=== PATIENT | male | born 1945 | race Caucasian/White ===

== ENCOUNTER 2019-06-05 23:05 | Emergency (ER) | payer OTHER, BC ==
[2019-06-06 00:02] LABS: Absolute Lymphocytes (CBC) 1.1 K/uL (0.7-4.9); Basophils % 0.3 % (0-1.3); Hematocrit 40.3 % (39.6-49.0); Lymphocytes % 18.7 % (15.3-44.8); MPV 9.6 fL (7.6-11.3); Protime INR 1.18
[2019-06-06 00:17] LABS: ALT/SGPT 32 U/L (12-78); AST/SGOT 36 U/L (15-37); Alkaline Phosphatase 94 U/L (45-117); BUN Blood Urea Nitrogen 39 mg/dL (7-18); Bicarbonate 27 mmol/L (21-32); Bilirubin Direct 0.2 mg/dL (0-0.2); Bilirubin Total 0.7 mg/dL (0.2-1.0); Glucose Level 104 mg/dL (74-106); Magnesium 2.3 mg/dL (1.8-2.4); NT PRO-BNP 194 pg/mL (<125); Potassium 3.8 mmol/L (3.5-5.1); Sodium Level 142 mmol/L (136-145); Troponin (Emerg Dept Use Only) < 0.02 ng/mL (0.0-0.045)
--- NOTE | 2019-06-06 01:20 | ER ---
Nurse's Notes [facility] Name: Octavio Sparks Age: 73 yrs Sex: Male : 1945 Arrival Date: 06/05/2019 Time: 23:09 Bed 5 Private MD: Diagnosis: Superficial injury of head;Syncope and collapse Presentation: 06/05 23:09 Presenting complaint: EMS states: they were toned out for a fall injury pt does not bb know if he had LOC he got up to go to the bathroom and found himself on the floor he had double vision from his right eye for a little while but it is gone now. Transition of care: patient was not received from another setting of care. Onset of symptoms was June 05, 2019. Risk Assessment: Do you want to hurt yourself or someone else? Patient reports no desire to harm self or others. Initial Sepsis Screen: Does the patient meet any 2 criteria? No. Patient's initial sepsis screen is negative. Does the patient have a suspected source of infection? No. Patient's initial sepsis screen is negative. Care prior to arrival: None. 23:09 Method Of Arrival: EMS: [facility] bb 23:09 Acuity: CANDICE 2 bb 23:09 Mechanism of Injury: Fall from standing position. Trauma event details: Injury occurred bb in the [facility], Injury occurred: at home. Injury occurred: June 05, 2019. Trauma Activation: Alert Physician: ED Physician; Name: Bhavesh; Notified At: 23:02; Arrived At: 23:02 Physician: General Surgeon; Name: ; Notified At: 23:02; Arrived At: Physician: Radiology; Name: Emilie; Notified At: 23:02; Arrived At: 23:02 Physician: Respiratory; Name: ; Notified At: 23:02; Arrived At: Physician: Lab; Name: ; Notified At: 23:02; Arrived At: Historical: - Allergies: 23:16 Codeine; bb - Home Meds: 23:16 sotalol 80 mg Oral tab 1 tab 2 times per day [Active]; atorvastatin 80 mg oral tab 1 bb tab once daily [Active]; Eliquis 5 mg oral tab 1 tab 2 times per day [Active]; aspirin 81 mg Oral TbEC 1 tab once daily [Active]; losartan 50 mg oral tab 1 tab 2 times per day [Active]; Celebrex 200 mg Oral cap 1 cap once daily [Active]; - PMHx: 23:16 Atrial Fib; Hypertension; Hyperlipidemia; reflux; herniated disc; bb - PSHx: 23:16 Tonsillectomy; Knee surgery; CABG; Rizwan Fundiplication; bb - Immunization history:: Adult Immunizations up to date. - Social history:: Smoking status: unknown. - Immunization history: Last tetanus immunization: unknown. - Ebola Screening: : No symptoms or risks identified at this time. Screenin:17 Abuse screen: Denies threats or abuse. Nutritional screening: No deficits noted. bb Tuberculosis screening: No symptoms or risk factors identified. Fall Risk Total Emery Fall Scale indicates High Risk Score (45 or more points). Fall prevention measures have been instituted. Side Rails Up X 2 Family Present and informed to notify staff if the need to leave the bedside As available patient and family educated on Fall Prevention Program and Strategies. Primary Survey: 23:09 NO uncontrolled hemorrhage observed. A: The patient is alert. Airway: patent. bb Breathing/Chest: Respiratory pattern: regular, Respiratory effort: spontaneous, unlabored, Breath sounds: clear, bilaterally. Chest inspection: symmetrical rise and fall of the chest. Circulation: Heart tones present. Pulses: palpable right radial artery and left radial artery. Skin color: pink, Skin temperature: warm. Disability Alert. 23:09 Exposure/Environment: There is no evidence of uncontrolled external bleeding. bb 23:53 Reassessment Airway Airway Patent Breathing/Chest Respiratory pattern Regular bb Respiratory effort Spontaneous Unlabored Breath sounds Clear Chest inspection Symmetrical Circulation Heart tones Present Disability Alert. Secondary Survey: 23:09 HEENT: Face Other small laceration to right brow bleeding controlled. Gastrointestinal: bb No deficits noted. : No deficits noted. Musculoskeletal: Circulation, motion, and sensation intact. Assessment: 23:17 General: Appears in no apparent distress. slender, Behavior is calm, cooperative. Pain: bb Complains of pain in right shoulder. Neuro: Level of Consciousness is awake, alert, obeys commands, Oriented to person, place, time, situation. Cardiovascular: Heart tones S1 S2 present Capillary refill < 3 seconds Patient's skin is warm and dry. Pulses are all present. Edema is absent. Respiratory: Airway is patent Respiratory effort is even, unlabored, Respiratory pattern is regular, Breath sounds are clear bilaterally. GI: Abdomen is flat, Bowel sounds present X 4 quads. Abd is soft and non tender X 4 quads. Derm: Wound noted right brow. Musculoskeletal: Circulation, motion, and sensation intact. 23:22 Reassessment: pt to CT via stretcher with certified ophthalmic technologist. bb 23:52 Reassessment: Patient and/or family updated on plan of care and expected duration. Pain bb level reassessed. Patient is alert, oriented x 3, equal unlabored respirations, skin warm/dry/pink. awaiting diagnostic results, family at bedside. 06/06 00:58 Reassessment: Patient and/or family updated on plan of care and expected duration. Pain ea level reassessed. Patient is alert, oriented x 3, equal unlabored respirations, skin warm/dry/pink. Awaiting on CT results. 01:17 Reassessment: Patient and/or family updated on plan of care and expected duration. Pain bb level reassessed. Patient is alert, oriented x 3, equal unlabored respirations, skin warm/dry/pink. pt verbalized understanding of and agrees to plan of care discharge instructions given pt ambulated with steady gait to exit accompanied by spouse. Vital Signs: 06/05 23:16 BP 111 / 59; Pulse 68; Resp 14 S; Temp 97.9(O); Pulse Ox 96% on R/A; Weight 70.31 kg bb (R); Height 6 ft. 0 in. (182.88 cm) (R); Pain 0/10; 23:52 BP 100 / 62; Pulse 68; Resp 16 S; Pulse Ox 98% on R/A; bb 06/06 01:00 BP 114 / 65; Pulse 60; Resp 18; Temp 97.7(TE); Pulse Ox 98% on R/A; ea 01:18 BP 124 / 71; Pulse 59; Resp 12 S; Temp 98.4(TE); Pulse Ox 97% on R/A; bb 06/05 23:16 Body Mass Index 21.02 (70.31 kg, 182.88 cm) bb Emile Coma Score: 06/05 23:09 Eye Response: spontaneous(4). Verbal Response: oriented(5). Motor Response: obeys bb commands(6). Total: 15. Trauma Score (Adult): 23:09 Eye Response: spontaneous(1); Verbal Response: oriented(1); Motor Response: obeys bb commands(2); Systolic BP: > 89 mm Hg(4); Respiratory Rate: 10 to 29 per min(4); [place] Score: 15; Trauma Score: 12 23:53 Eye Response: spontaneous(1); Verbal Response: oriented(1); Motor Response: obeys bb commands(2); Systolic BP: > 89 mm Hg(4); Respiratory Rate: 10 to 29 per min(4); [place] Score: 15; Trauma Score: 12 ED Course: 23:09 Patient arrived in ED. jr8 23:09 Joni Andrews PA is PHCP. jr8 23:09 Sky Ospina MD is Attending Physician. jr8 23:09 Stacey Roberts, RN is Primary Nurse. bb 23:09 Patient maintains SpO2 saturation greater than 95% on room air. bb 23:10 Triage completed. bb 23:14 Inserted saline lock: 20 gauge in left antecubital area, using aseptic technique. ag4 23:15 Thermoregulation: warm blanket given to patient. bb 23:16 Arm band placed on Patient placed in an exam room, on a stretcher, on pulse oximetry. bb Family accompanied patient. 23:17 Patient has correct armband on for positive identification. Placed in gown. Bed in low bb position. Call light in reach. Side rails up X2. Adult w/ patient. Pulse ox on. NIBP on. 23:22 X-ray completed. Patient tolerated procedure well. Patient moved to radiology via sw stretcher. Patient moved back from radiology. 23:23 XRAY Chest (1 view) In Process Unspecified. EDMS 23:24 CT Head Brain wo Cont In Process Unspecified. EDMS 23:39 EKG done, by ED staff, reviewed by Sky Ospina MD. ag4 06/06 01:19 No provider procedures requiring assistance completed. IV discontinued, intact, bb bleeding controlled, No redness/swelling at site. Pressure dressing applied. Administered Medications: No medications were administered Intake: 06/05 23:09 PO: 0ml; Total: 0ml. bb Outcome: 06/06 01:05 Discharge ordered by MD. marquis 01:19 Discharged to home ambulatory, with family. keara 01:19 Condition: stable 01:19 Discharge instructions given to patient, Instructed on discharge instructions, follow up and referral plans. wound care, Demonstrated understanding of instructions, follow-up care, wound care. 01:19 Patient's length of stay in the Emergency Department was greater than 2 hours. keara 01:19 Patient left the ED. bb Signatures: Dispatcher [employer] Stacey Lawrence RN RN Joni Delaney PA PA jr8 Warren, Shannon sw Antunez, Elena, RN RN Baljeet Flores ag4
--- NOTE | 2019-06-06 01:24 | EDPHYS ---
Physician Documentation [facility] Name: Octavio Sparks Age: 73 yrs Sex: Male : 1945 Arrival Date: 06/05/2019 Time: 23:09 Bed 5 Private MD: ED Physician Sky Ospina HPI: 06/06 01:02 This 73 yrs old Male presents to ER via EMS with complaints of fall/Syncope. jr8 01:02 Associated injuries: The patient sustained injury to the head, abrasion, pain. Onset: jr8 The symptoms/episode began/occurred acutely, today. The patient has not experienced similar symptoms in the past. The patient has not recently seen a physician. Patient stated that he was getting out of his chair to go use the bathroom. Stated that next thing he noticed was him waking up on the floor. Denies CP, shortness of breath, dizziness prior or after syncope. Currently with mild headache only . Historical: - Allergies: 06/05 23:16 Codeine; bb - Home Meds: 23:16 sotalol 80 mg Oral tab 1 tab 2 times per day [Active]; atorvastatin 80 mg oral tab 1 bb tab once daily [Active]; Eliquis 5 mg oral tab 1 tab 2 times per day [Active]; aspirin 81 mg Oral TbEC 1 tab once daily [Active]; losartan 50 mg oral tab 1 tab 2 times per day [Active]; Celebrex 200 mg Oral cap 1 cap once daily [Active]; - PMHx: 23:16 Atrial Fib; Hypertension; Hyperlipidemia; reflux; herniated disc; bb - PSHx: 23:16 Tonsillectomy; Knee surgery; CABG; Rizwan Fundiplication; bb - Immunization history:: Adult Immunizations up to date. - Social history:: Smoking status: unknown. - Immunization history: Last tetanus immunization: unknown. - Ebola Screening: : No symptoms or risks identified at this time. ROS: 06/06 01:03 Eyes: Negative for injury, pain, redness, and discharge, ENT: Negative for injury, jr8 pain, and discharge, Neck: Negative for injury, pain, and swelling, Cardiovascular: Negative for chest pain, palpitations, and edema, Respiratory: Negative for shortness of breath, cough, wheezing, and pleuritic chest pain, Abdomen/GI: Negative for abdominal pain, nausea, vomiting, diarrhea, and constipation, Back: Negative for injury and pain, MS/Extremity: Negative for injury and deformity, Skin: Negative for injury, rash, and discoloration. Neuro: Positive for headache, syncope. Exam: 01:03 Eyes: Pupils equal round and reactive to light, extra-ocular motions intact. Lids and jr8 lashes normal. Conjunctiva and sclera are non-icteric and not injected. Cornea within normal limits. Periorbital areas with no swelling, redness, or edema. ENT: Nares patent. No nasal discharge, no septal abnormalities noted. Tympanic membranes are normal and external auditory canals are clear. Oropharynx with no redness, swelling, or masses, exudates, or evidence of obstruction, uvula midline. Mucous membranes moist. Neck: Trachea midline, no thyromegaly or masses palpated, and no cervical lymphadenopathy. Supple, full range of motion without nuchal rigidity, or vertebral point tenderness. No Meningismus. Cardiovascular: Regular rate and rhythm with a normal S1 and S2. No gallops, murmurs, or rubs. Normal PMI, no JVD. No pulse deficits. Respiratory: Lungs have equal breath sounds bilaterally, clear to auscultation and percussion. No rales, rhonchi or wheezes noted. No increased work of breathing, no retractions or nasal flaring. Abdomen/GI: Soft, non-tender, with normal bowel sounds. No distension or tympany. No guarding or rebound. No evidence of tenderness throughout. Back: No spinal tenderness. No costovertebral tenderness. Full range of motion. Skin: Warm, dry with normal turgor. Normal color with no rashes, no lesions, and no evidence of cellulitis. MS/ Extremity: Pulses equal, no cyanosis. Neurovascular intact. Full, normal range of motion. Neuro: Awake and alert, GCS 15, oriented to person, place, time, and situation. Cranial nerves II-XII grossly intact. Motor strength 5/5 in all extremities. Sensory grossly intact. Cerebellar exam normal. Normal gait. 01:03 Head/face: Noted is abrasion(s), that are mild, of the right shinto, hematoma, that is mild, of the right shinto. Vital Signs: 06/05 23:16 BP 111 / 59; Pulse 68; Resp 14 S; Temp 97.9(O); Pulse Ox 96% on R/A; Weight 70.31 kg bb (R); Height 6 ft. 0 in. (182.88 cm) (R); Pain 0/10; 23:52 BP 100 / 62; Pulse 68; Resp 16 S; Pulse Ox 98% on R/A; bb 06/06 01:00 BP 114 / 65; Pulse 60; Resp 18; Temp 97.7(TE); Pulse Ox 98% on R/A; ea 01:18 BP 124 / 71; Pulse 59; Resp 12 S; Temp 98.4(TE); Pulse Ox 97% on R/A; bb 06/05 23:16 Body Mass Index 21.02 (70.31 kg, 182.88 cm) [place] Coma Score: 06/05 23:09 Eye Response: spontaneous(4). Verbal Response: oriented(5). Motor Response: obeys bb commands(6). Total: 15. Trauma Score (Adult): 23:09 Eye Response: spontaneous(1); Verbal Response: oriented(1); Motor Response: obeys bb commands(2); Systolic BP: > 89 mm Hg(4); Respiratory Rate: 10 to 29 per min(4); Emile Score: 15; Trauma Score: 12 23:53 Eye Response: spontaneous(1); Verbal Response: oriented(1); Motor Response: obeys bb commands(2); Systolic BP: > 89 mm Hg(4); Respiratory Rate: 10 to 29 per min(4); Emile Score: 15; Trauma Score: 12 MDM: 23:09 Patient medically screened. [facility] 06/06 01:03 Data reviewed: vital signs, nurses notes, lab test result(s), EKG, radiologic studies, [facility] CT scan, plain films. Data interpreted: Pulse oximetry: on room air is 98 %. Interpretation: normal. Counseling: I had a detailed discussion with the patient and/or guardian regarding: the historical points, exam findings, and any diagnostic results supporting the discharge/admit diagnosis, lab results, radiology results, the need for outpatient follow up, a family practitioner, to return to the emergency department if symptoms worsen or persist or if there are any questions or concerns that arise at home. Response to treatment: the patient's symptoms have resolved after treatment. ED course: Patient remains stable in ED. Currently without any s/s. VS stable. No acute findings on labs, imaging, or ECG. Will d/c home to f/u with PCP. If worse to come back. Family and patient good with this plan . 06/05 23:09 Order name: Basic Metabolic Panel; Complete Time: 00:33 06/05 23:09 Order name: CBC with Diff; Complete Time: 00:16 06/05 23:09 Order name: LFT's; Complete Time: 00:33 06/05 23:09 Order name: Magnesium; Complete Time: 00:33 06/05 23:09 Order name: NT PRO-BNP; Complete Time: 00:33 06/05 23:09 Order name: PT-INR; Complete Time: 00:16 06/05 23:09 Order name: Troponin (emerg Dept Use Only); Complete Time: 00:33 06/05 23:09 Order name: XRAY Chest (1 view) 06/05 23:09 Order name: EKG; Complete Time: 23:11 06/05 23:09 Order name: Cardiac monitoring; Complete Time: 23:13 06/05 23:09 Order name: EKG - Nurse/Tech; Complete Time: 23:40 06/05 23:09 Order name: IV Saline Lock; Complete Time: 23:13 06/05 23:09 Order name: Labs collected and sent; Complete Time: 23:40 06/05 23:09 Order name: CT Head Brain wo Cont 06/05 23:09 Order name: O2 Per Protocol; Complete Time: 23:13 06/05 23:09 Order name: O2 Sat Monitoring; Complete Time: 23:13 Administered Medications: No medications were administered Disposition: 02:11 Co-signature as Attending Physician, Sky Ospina MD I agree with the assessment and kdr plan of care. Disposition: 06/06/19 01:05 Discharged to Home. Impression: Superficial injury of head, Syncope and collapse. - Condition is Stable. - Discharge Instructions: Head Injury, Adult, Syncope. - Medication Reconciliation Form, Thank You Letter, Antibiotic Education, Prescription Opioid Use form. - Follow up: Private Physician; When: 1 - 2 days; Reason: Recheck today's complaints, Continuance of care, Re-evaluation by your physician. - Problem is new. - Symptoms have improved. Signatures: Dispatcher [employer] EDMS Sky Ospina MD MD kdr Ballard, Brenda RN RN bb Joni Andrews PA PA jr8 Corrections: (The following items were deleted from the chart) 01:19 01:05 06/06/2019 01:05 Discharged to Home. Impression: Superficial injury of head; bb Syncope and collapse. Condition is Stable. Forms are Medication Reconciliation Form, Thank You Letter, Antibiotic Education, Prescription Opioid Use. Follow up: Private Physician; When: 1 - 2 days; Reason: Recheck today's complaints, Continuance of care, Re-evaluation by your physician. Problem is new. Symptoms have improved. jr8
[2019-06-06 02:12] VITALS: BP 124/71; TEMP 98.4; O2SAT 97
--- NOTE | 2019-06-06 08:21 | RAD REPORT ---
EXAM DESCRIPTION: RAD - Chest Single View - 06/05/2019 11:25 pm CLINICAL HISTORY: Fall, syncope, shortness of breath COMPARISON: February 2012 TECHNIQUE: AP portable chest image was obtained 2320 hours . FINDINGS: No focal lung parenchymal process. Interstitial pattern matches comparison. Sternotomy wir es are in place. Heart and vasculature are normal. No measurable pleural effusion and no pneumothorax . No acute bony abnormality seen. No acute aortic findings suspected. IMPRESSION: No acute cardiopulmonary process.
--- NOTE | 2019-06-06 08:35 | EKG ---
Test Date: 2019-06-05 Test Time: 23:34:09 Promotion Officer: MEASUREMENT RESULTS: Intervals: Rate: 65 FL: 158 QRSD: 96 QT: 442 QTc: 459 [place]: P: 7 FL: 158 QRS: -12 T: 54 INTERPRETIVE STATEMENTS: Normal sinus rhythm Normal ECG No previous ECG available for comparison Electronically Signed On 06-06-19 08:34:47 CDT by Alfredito Shen
--- NOTE | 2019-06-06 10:22 | RAD REPORT ---
EXAM DESCRIPTION: CT - Head Brain Wo Cont - 06/05/2019 11:54 pm CLINICAL HISTORY: 73 years Male TRAUMA COMPARISON: None No evidence for skull fracture. Symmetric aeration mastoid air cells bilaterally. Unremarkable parana mary sinuses. TECHNIQUE: Images were obtained in axial, sagittal, and coronal planes. This exam was performed according to our departmental dose-optimization program which includes use of Automated Exposure Control, adjustment of the mA and/or kV according to patient size and/or use of i terative reconstruction technique. FINDINGS: Mild ventricular enlargement. Mild prominence of the cortical sulci. Mild cerebral volume loss. No abnormal areas of increased attenuation seen. No extra-axial fluid collections noted. IMPRESSION: No acute intracranial abnormality. No evidence for hemorrhage, mass lesion, or large acu te infarction. Electronically signed by: Debbie Moseley MD 06/05/2019 11:28 PM CDT Due to temporary technical issues with the PACS/Fluency reporting system, reports are being signed by the in house radiologist as a courtesy to ensure prompt reporting. The interpreting radiologist is f ully responsible for the content of the report.
== END 2019-06-06 01:19 | disposition home or self-care (01) ==
LOC: ER 23:05
DX: S00.90XA Unspecified superficial injury of unspecified part of head, initial encounter (principal); W19.XXXA Unspecified fall, initial encounter; Y93.89 Activity, other specified; Y92.9 Unspecified place or not applicable; Z79.01 Long term (current) use of anticoagulants; Z79.82 Long term (current) use of aspirin; Z88.5 Allergy status to narcotic agent; Z95.1 Presence of aortocoronary bypass graft; I10 Essential (primary) hypertension; E78.5 Hyperlipidemia, unspecified; I48.91 Unspecified atrial fibrillation
CPT/HCPCS: 36415; 70450; 71045; 80048; 80076; 83735; 83880; 84484; 85025; 85610; 93005; 99284